=== PATIENT | female | born 1935 | race Hispanic/Latino ===

== ENCOUNTER 2020-09-18 13:41 | Emergency (ER) | payer MEDICARE ==
[2020-09-18 15:03] VITALS: BP 156/71
--- NOTE | 2020-09-18 15:11 | Event Note ---
ED Screening Note Date of service: 09/18/20 Time: 15:10 ED Screening Note: Patient is an 84-year-old female with a history of hypertension and chronic recurrent hyponatremia who presents to the ED for evaluation after being referred to the ED by her primary care physician for suspected hyponatremia about 6 hours ago. Patient states that she was initially evaluated by her primary care physician who after checking her labs in the office noticed that her sodium was significantly low and was advised to come to the ED for evaluation. Patient denies chest pain, shortness of breath, numbness and tingling or weakness of upper and lower extremities bilaterally, change in vision, abdominal pain, nausea and vomiting or diarrhea. This initial assessment/diagnostic orders/clinical plan/treatment(s) is/are subject to change based on patients health status, clinical progression and re- assessment by fellow clinical providers in the ED. Further treatment and workup at subsequent clinical providers discretion. Patient/guardian urged not to elope from the ED as their condition may be serious if not clinically assessed and managed. Initial orders include: CBC, CMP, EKG, troponin,
[2020-09-18 15:35] LABS: Basophils % (Auto) 0.3 % (0.0-1.8); Eosinophils # (Auto) 0.1 K/mm3 (0.0-0.4); Eosinophils % (Auto) 1.6 % (0.0-4.3); Hematocrit 43.9 % (30.3-42.9); Lymphocytes # (Auto) 1.5 K/mm3 (1.2-5.4); Mean Corpuscular HGB Conc 34 % (30-34); Mean Corpuscular Volume 87 fl (79-97); Monocytes # (Auto) 0.9 K/mm3 (0.0-0.8); Monocytes % (Auto) 9.5 % (0.0-7.3); Platelet Count 239 K/mm3 (140-440); Red Blood Count 5.05 M/mm3 (3.65-5.03); Red Cell Distribution Width 14.3 % (13.2-15.2)
[2020-09-18 15:59] LABS: Alanine Aminotransferase 16 units/L (7-56); BUN/Creatinine Ratio 23; Blood Urea Nitrogen 23 mg/dL (7-17); Calcium 10.3 mg/dL (8.4-10.2); Hemolysis Index 9
== END 2020-09-18 21:00 | disposition left against medical advice (07) ==
LOC: ED 13:41
DX: E87.1 Hypo-osmolality and hyponatremia (principal); Z53.21 Procedure and treatment not carried out due to patient leaving prior to being seen by health care provider
CPT/HCPCS: 36415; 80053; 84484; 85025